=== PATIENT | male | born 2000 | race Caucasian/White ===

== ENCOUNTER → 2020-10-04 | Outpatient (CLI) | payer OTHER | LOC: SJCVCIMAG 13:45 | PROVIDERS: ATTEND Internal Medicine Cardiovascular Disease | DX: Q93.82 Williams syndrome (principal); T78.40XS Allergy, unspecified, sequela; Z84.89 Family history of other specified conditions; Z72.0 Tobacco use; Z79.899 Other long term (current) drug therapy ==

== ENCOUNTER 2020-10-15 10:10 | Emergency (ER) | payer OTHER ==
[~2020-10-15] VITALS: Ht 170.2 cm; Wt 56.7 kg
[2020-10-15 11:29] LABS: ABSOLUTE NEUTROPHILS 3.2 thou/uL (1.4-8.2); BASOPHILS 0.8 % (0.0-2.0); EOSINOPHILS 3.5 % (0.0-3.0); HEMATOCRIT 43.9 % (42.0-52.0); HEMOGLOBIN 14.9 gm/dL (14.0-18.0); LYMPHOCYTES 24.5 % (24.0-44.0); MCH 30.2 pg (26.0-34.0); MCV 88.8 fL (80.0-100.0); MONOCYTES 12.2 % (1.0-8.0); PLATELET COUNT 193 thou/uL (150-400); RBC 4.95 mil/uL (4.50-6.00); RDW 13.8 % (10.5-14.5); WBC 5.5 thou/uL (4.0-11.0)
[2020-10-15 11:39] LABS: CALCIUM 9.4 mg/dL (8.5-10.1); CREATININE 1.1 mg/dL (0.7-1.3); POTASSIUM 4.4 mmol/L (3.5-5.1)
[2020-10-15 11:45] LABS: ALBUMIN 4.1 g/dL (3.4-5.0); TOTAL BILIRUBIN 0.3 mg/dL (0.2-1.0); TOTAL PROTEIN 7.5 g/dL (6.4-8.2)
[2020-10-15] MEDS ORDERED: AMOXICILLIN875 MG PO (12:23)
[2020-10-15 12:50] VITALS: BP 97/60
== END 2020-10-15 13:54 | disposition home or self-care (01) ==
LOC: ER 10:10
PROVIDERS: Emergency Medicine
DX: R59.1 Generalized enlarged lymph nodes (principal)